=== PATIENT | female | born 1990 | race Two or more races ===

== ENCOUNTER 2019-08-09 03:10 | Emergency (ER) | payer OTHER ==
[~2019-08-09] VITALS: Ht 161.3 cm; Wt 88.0 kg
[2019-08-09 03:10] VITALS: BP 127/84
--- NOTE | 2019-08-09 03:30 | NUR ---
BIB S/O C/O ABD CRAMPING WITH VAGINAL BLEEDING. PT 5 1/2 WEEKS. PT REPORTS MISCARRIAGE IN MAY WITH D&C May. SAW OBGYN TODAY WITH AARTI.
--- NOTE | 2019-08-09 03:47 | NUR ---
PATTERN CHANGER AT THE BED SIDE. URINE COLLECTED AND SENT TO THE LAB.
[2019-08-09 03:55] LABS: HEMATOCRIT 42 % (33-45); HEMOGLOBIN 14.6 g/dL (11.5-14.8); MEAN CORPUSCULAR HGB CONC 35 g/dl (31.0-36.0); MEAN CORPUSCULAR VOLUME 93 fL (82-100); NEUTROPHILS % (AUTO) 74.3 % (43.0-81.0); PLATELET COUNT (AUTO) 302 /CMM (150-450); RED BLOOD CELL COUNT(AUTO) 4.54 MIL/uL (4.0-5.2); WHITE BLOOD COUNT (AUTO) 11.8 K/uL (4.3-11.0)
[2019-08-09 03:56] LABS: BASOPHILS # (AUTO) 0.1 /CMM (0.0-0.2); BASOPHILS % (AUTO) 0.6 % (0.0-2.0); EOSINOPHILS % (AUTO) 2.2 % (0.0-6.0); LYMPHOCYTES # (AUTO) 2.1 /CMM (0.8-4.8); LYMPHOCYTES % (AUTO) 17.4 % (20.0-44.0); MONOCYTES # (AUTO) 0.6 /CMM (0.1-1.30); MONOCYTES % (AUTO) 5.5 % (2.0-12.0); NEUTROPHILS # (AUTO) 8.8 /CMM (1.8-8.9)
[2019-08-09 03:56] LABS: APPEARANCE,URINE Clear (CLEAR); BILIRUBIN,URINE Negative (NEGATIVE); BLOOD, URINE Large Ery/uL (NEGATIVE); COLOR,URINE Yellow (YELLOW); KETONES,URINE Trace (NEGATIVE); LEUKOCYTE ESTERASE ,URINE Negative (NEGATIVE); NITRITE, URINE Negative (NEGATIVE); PH,URINE 5.5 (5.0-8.0); PROTEIN,URINE Negative (NEGATIVE); UGLUCOSE Negative (NEGATIVE); UROBILINOGEN,URINE 0.2 EU/dL (0.2)
[2019-08-09 04:05] LABS: CREATININE 0.7 mg/dL (0.6-1.3); POTASSIUM 4.5 mmol/L (3.5-5.1)
[2019-08-09 04:06] LABS: CALCIUM, SERUM 9.1 mg/dL (8.5-10.1)
[2019-08-09 04:22] LABS: BACTERIA,URINE None seen /HPF (None Seen); SQUAMOUS EPITHELIAL CELL,UR Few /HPF (None Seen); WBC,URINE 0-2 /HPF (0-3)
[2019-08-09 04:32] LABS: ALBUMIN 3.8 g/dL (3.4-5.0); BILIRUBIN,DIRECT 0.1 mg/dL (0.0-0.2); BILIRUBIN,TOTAL 0.1 mg/dL (0.2-1.0); TOTAL PROTEIN, SERUM 6.9 g/dL (6.4-8.2)
--- NOTE | 2019-08-09 04:43 | NUR ---
PT LEFT THE HOSPITAL WITHOUT BEING SEEN BY THE MD.
== END 2019-08-09 04:43 | disposition left against medical advice (07) ==
LOC: ER 03:11
DX: O46.91 Antepartum hemorrhage, unspecified, first trimester (principal); Z3A.01 Less than 8 weeks gestation of pregnancy
CPT/HCPCS: 36415; 80048-TC; 80076-TC; 81000-TC; 84702-TC; 85025-TC; 85730-TC